=== PATIENT | male | born 1945 | race Caucasian/White ===

== ENCOUNTER 2022-07-14 13:57 | Emergency (ER) | payer OTHER, MEDICAID ==
[~2022-07-14] VITALS: Ht 182.9 cm; Wt 79.4 kg
[2022-07-14 14:37] LABS: HEMATOCRIT 34.4 % (36.7-47.1); MEAN CORPUSCULAR HEMOGLOBIN 30.5 uug (23.8-33.4); MEAN CORPUSCULAR VOLUME 90.4 fL (73.0-96.2); PLATELET COUNT (AUTO) 245 K/uL (152-348)
--- NOTE | 2022-07-14 15:30 | NUR ---
Pt came in with daughter. [place] speaking. Had a fall 5 days ago and been having body weakness, no fever but with headache and n/v yesterday. Pt also c/o rt foot pain and swelling and rt abdominal swelling. Pt is incontinent. Had a stroke 1.5 years ago. Pt was given the words BLUE, SOCKS, BED and after 1 minute, pt only able to recall "blue", i.e., 1 out of 3.
[2022-07-14 15:31] LABS: ALANINE AMINOTRANSFERASE 24 U/L (16-63); ALKALINE PHOSPHATASE 54 U/L (50-136); ASPARTATE AMINOTRANSFERASE 10 U/L (15-37); BILIRUBIN,DIRECT 0.1 mg/dL (0.0-0.2); BILIRUBIN,TOTAL 0.5 mg/dL (0.2-1.0); CARBON DIOXIDE 27 mmol/L (21-32); CHLORIDE 102 mmol/L (98-107); CREATININE 1.1 mg/dL (0.6-1.3); GLUCOSE 207 mg/dL (74-106); POTASSIUM 4.1 mmol/L (3.5-5.1); TOTAL PROTEIN, SERUM 6.9 g/dL (6.4-8.2); UREA NITROGEN, BLOOD 24 mg/dL (7-18)
[2022-07-14 18:17] LABS: *BILIRUBIN,URIN NEGATIVE (NEGATIVE); *BLOOD, URINE 3+ (NEGATIVE); *CLARITY,URINE CLOUDY (CLEAR); *COLOR,URINE LIGHT YELLOW (YELLOW); *KETONES,URINE NEGATIVE (NEGATIVE); *UROBILINOGEN,URINE 0.2 E.U./dl (NORMAL); LEUKOCYTE ESTERASE ,URINE 3+ (NEGATIVE); NITRITE, URINE POSITIVE (NEGATIVE); PH,URINE 6.5 (5.0-8.0); UGLUCOSE NEGATIVE (NEGATIVE)
[2022-07-14 18:21] LABS: BACTERIA,URINE MANY /HPF (NONE SEEN); RBC,URINE TNTC /HPF (0-3); SQUAMOUS EPITHELIAL CELL,UR FEW /HPF (NONE SEEN); WBC,URINE TNTC /HPF (0-3)
[2022-07-14] MEDS ORDERED: CEFTRIAXONE 1 G in IV DEXTROSE 5% 50 ML IV ONE (18:30)
[2022-07-14] MEDS ORDERED: CEFTRIAXONE /D5W 50ML IVPB **ER PYXIS IV ONE (19:46)
--- NOTE | 2022-07-14 19:53 | NUR ---
Change of shift report from Tony SAUNDERS
[2022-07-14] MEDS ORDERED: ONDANSETRON 4 MG/2 ML VIAL ONE (20:03)
[2022-07-14] MEDS ORDERED: MAGNESIUM HYDROXIDE 30 ML LIQUID UDC PO PRN (20:15)
[2022-07-14] MEDS ORDERED: IV NS 1000 ML 1,000 ML IV PRN (20:15)
[2022-07-14] MEDS ORDERED: REMEDY ESSENTIAL ZINC PASTE 113 GM TP PRN (20:15)
[2022-07-14] MEDS ORDERED: ACETAMINOPHEN 325 MG TABLET PO PRN (20:15)
[2022-07-14] MEDS ORDERED: ONDANSETRON 4 MG/2 ML VIAL IV PRN (20:15)
[2022-07-14] MEDS ORDERED: IV NORMAL SALINE 1000 ML BAG IV ONE (21:15)
[2022-07-14] MEDS ORDERED: ASPIRIN 325 MG TABLET PO ONE (21:15)
[2022-07-14] MEDS ORDERED: ASPIRIN 325 MG TABLET ONE (21:48)
[2022-07-14] MEDS ORDERED: ACETAMINOPHEN ES 500 MG TABLET PO ONE (22:00)
[2022-07-14] MEDS ORDERED: ACETAMINOPHEN ES 500 MG TABLET ONE (22:12)
--- NOTE | 2022-07-15 02:05 | NUR ---
Called [facility]. Patient has been accepted to [facility] under Dr Stahl
--- NOTE | 2022-07-15 02:06 | NUR ---
No transfer information at this time
--- NOTE | 2022-07-15 02:40 | NUR ---
report given to Belkys SAUNDERS - Adriel Li
--- NOTE | 2022-07-15 02:45 | NUR ---
Patient will be transfered to [facility] room [address]ahl
--- NOTE | 2022-07-15 02:53 | NUR ---
called daughter Belkys. No answer. left a voice message, made aware that ambulance is at bedside for patient tranportation to [facility]
--- NOTE | 2022-07-15 02:55 | NUR ---
Patient Tranfers to outside Facility Physician: Dr Stahl Location: [facility]
[2022-07-15] MEDS ORDERED: CEFTRIAXONE 1 G in IV DEXTROSE 5% 50 ML IV SCH (20:00)
== END 2022-07-15 02:56 | disposition short-term general hospital (02) ==
LOC: ER 13:58
DX: A41.9 Sepsis, unspecified organism (principal); N39.0 Urinary tract infection, site not specified; E78.1 Pure hyperglyceridemia; Z91.81 History of falling; Z86.73 Personal history of transient ischemic attack (TIA), and cerebral infarction without residual deficits; Z20.822 Contact with and (suspected) exposure to COVID-19; R94.31 Abnormal electrocardiogram [ECG] [EKG]
CPT/HCPCS: 99291; 70450; 96365; 96361; 87426; 80076; 80048; 81001; 85025; 84145; 85730; 87040 ×2; 87086; 84484; 36415; 93005; 71045; 72072; 72100; 72170; 73030; 73630; 74176; 83605 ×2; J0696; J2405; J7040; A4663; A9150